=== PATIENT | male | born 1970 | race Caucasian/White ===

== ENCOUNTER 2017-09-23 17:53 | Emergency (ER) | payer SELFPAY ==
--- NOTE | 2017-09-23 18:13 | Emergency Department Record ---
History of Present Illness - General Chief Complaint: Headache Migraine Stated Complaint: HEAD PRESSURE Time Seen by Provider: 09/23/17 18:06 Source: Patient Mode of Arrival: Ambulatory - History of Present Illness Initial Comments: headache which started thursday and using norco one every 4 hours and he has four pills left. No vomiting and history of pneumonia one month ago and was on zpak and had a chest xray. slight cough, smokes cigs. No nuchal signs. Patient states it feels like a band around his head MD Complaint: Headache Onset/Timin -: Days(s) Onset Description: Gradual, At rest Location: Occipital Severity scale (1-10): 5 Quality: Full Consistency: Constant, Getting worse Improves With: Nothing Worsens With: None Treatments Prior to Arrival: Prescription analgesic - Related Data Previous Rx's Medication Instructions Recorded Naproxen [Naprosyn] 500 mg PO BID #20 tablet 09/23/17 Allergies Allergy/AdvReac Type Severity Reaction Status Date / Time povidone-iodine Allergy Mild RASH Unverified 09/23/17 17:24 [From Betadine] soap [From Betadine] Allergy Mild RASH Unverified 09/23/17 17:24 Travel Screening - Travel/Exposure Within Last 30 Days Have you traveled within the last 30 days?: No Review of Systems Reviewed: No additional complaints except as noted below Constitutional: Reports: As per HPI. Denies: Chills, Fever, Malaise, Night sweats, Weakness, Weight change Eyes: Reports: As per HPI. Denies: Eye discharge, Eye pain, Photophobia, Vision change ENT: Reports: As per HPI, Congestion. Denies: Dental pain, Ear pain, Epistaxis , Hearing loss, Throat pain Respiratory: Reports: As per HPI. Denies: Cough, Dyspnea, Hemoptysis, Stridor, Wheezes Cardiovascular: Reports: As per HPI. Denies: Arrhythmia, Chest pain, Dyspnea on exertion, Edema, Murmurs, Orthopnea, Palpitations, Paroxysmal nocturnal dyspnea, Rheumatic Fever, Syncope Endocrine: Reports: As per HPI. Denies: Fatigue, Heat or cold intolerance, Polydipsia, Polyuria Gastrointestinal: Reports: As per HPI. Denies: Abdominal pain, Constipation, Diarrhea, Hematemesis, Hematochezia, Melena, Nausea, Vomiting Genitourinary: Reports: As per HPI. Denies: Dysuria, Frequency, Hematuria, Incontinence, Retention, Testicular pain, Testicular mass, Urgency Musculoskeletal: Reports: As per HPI. Denies: Arthralgia, Back pain, Gout, Joint swelling, Myalgia, Neck pain Skin: Reports: As per HPI. Denies: Bruising, Change in color, Change in hair/ nails, Lesions, Pruritus, Rash Neurological: Reports: As per HPI. Denies: Abnormal gait, Confusion, Headache, Numbness, Paresthesias, Seizure, Tingling, Tremors, Vertigo, Weakness Psychiatric: Reports: As per HPI. Denies: Anxiety, Auditory hallucinations, Depression, Homicidal thoughts, Suicidal thoughts, Visual hallucinations Hematological/Lymphatic: Reports: As per HPI. Denies: Anemia, Blood Clots, Easy bleeding, Easy bruising, Swollen glands Past Medical History - SOCIAL HISTORY Smoking Status: Never smoker Alcohol Use: None Drug Use: None - RESPIRATORY Hx Respiratory Disorders: No - CARDIOVASCULAR Hx Cardio Disorders: No - NEURO Hx Neuro Disorders: No - GI Hx GI Disorders: No - Hx Genitourinary Disorders: No - ENDOCRINE Hx Endocrine Disorders: No - MUSCULOSKELETAL Hx Musculoskeletal Disorders: No - PSYCH Hx Psych Problems: No - HEMATOLOGY/ONCOLOGY Hx Hematology/Oncology Disorders: No Family Medical History Any Significant Family History?: No Physical Exam - General General Appearance: Alert, Oriented x3, Cooperative, Mild distress - Head Head exam: Normal inspection, Other (No nuchal signs and moves his neck without pain) - Eye Eye exam: Normal appearance, PERRL Pupils: Normal accommodation - ENT ENT exam: Normal exam, Mucous membranes moist, Normal external ear exam, Normal orophraynx, TM's normal bilaterally Ear exam: Normal external inspection. negative: External canal tenderness Nasal Exam: Normal inspection. negative: Discharge, Sinus tenderness Mouth exam: Normal external inspection, Tongue normal Teeth exam: Normal inspection. negative: Dental caries Throat exam: Normal inspection. negative: Tonsillar erythema, Tonsillar exudate - Neck Neck exam: Normal inspection, Full ROM. negative: Tenderness - Respiratory Respiratory exam: Normal lung sounds bilaterally. negative: Respiratory distress - Cardiovascular Cardiovascular Exam: Regular rate, Normal rhythm, Normal heart sounds - GI/Abdominal GI/Abdominal exam: Soft, Normal bowel sounds. negative: Tenderness - Rectal Rectal exam: Deferred - exam: Deferred - Extremities Extremities exam: Normal inspection, Full ROM, Normal capillary refill. negative: Tenderness - Back Back exam: Reports: Normal inspection, Full ROM. Denies: Muscle spasm, Rash noted, Tenderness - Neurological Neurological exam: Alert, Normal gait, Oriented X3, Reflexes normal - Psychiatric Psychiatric exam: Normal affect, Normal mood - Skin Skin exam: Dry, Intact, Normal color, Warm Course - Reevaluation(s) Reevaluation #1: reviewed chest xray from july09/23/17 18:39 Medical Decision Making - Lab Data Result diagrams: 09/23/17 18:20 09/23/17 18:20 Disposition Clinical Impression: Headache Qualifiers: Headache type: tension-type Headache chronicity pattern: acute headache Intractability: not intractable Qualified Code(s): G44.209 - Tension-type headache, unspecified, not intractable Disposition: Home, Self-Care Condition: (1) Good Instructions: Tension Headache (ED) Additional Instructions: follow up with Dr. Galloway on Thursday at 10:00 am naprosyn twice a day Prescriptions: Naproxen [Naprosyn] 500 mg PO BID #20 tablet Forms: Patient Portal Access Time of Disposition: 18:57 Quality - Quality Measures Quality Measures: N/A - Blood Pressure Screening Does Patient Have Any of the Following: No Blood Pressure Classification: Hypertensive Reading Systolic Measurement: 142 Diastolic Measurement: 105 Screening for High Blood Pressure: < Pre-Hypertensive BP, F/U Documented > [ G8950] Pre-Hypertensive Follow-up Interventions: Referral to alternative/primary care provider.
[2017-09-23] MEDS ORDERED: DIPHENHYDRAMINE HCL 50 MG/ML VIAL IVP ONE (18:16)
[2017-09-23] MEDS ORDERED: PROMETHAZINE HCL 25 MG in 0.9 % SODIUM CHLORIDE 100ML 100 ML IVPB ONE (18:16)
[2017-09-23] MEDS ORDERED: KETOROLAC 30 MG/ML VIAL IVP ONE (18:16)
[2017-09-23] MEDS ORDERED: 0.9 % SODIUM CHLORIDE 1000ML 1,000 ML IV ONE (18:18)
[2017-09-23 18:34] LABS: BASO % 0.3 % (0-6); GRAN % 69.9 % (47-80); HEMATOCRIT 48.6 % (42.0-52.0); HEMOGLOBIN 16.6 gm/dl (14.0-18.0); LYMPH % 19.8 % (16-45); MEAN CELL VOLUME 80.5 fl (81-97); MEAN CORPUSCULAR HEMOGLOBIN 27.4 pg (27-33); MEAN CORPUSCULAR HGB CONC 34.2 g/dl (32-36); MEAN PLATELET VOLUME 10.4 fl (7.4-10.4); PLATELET COUNT 268 K/uL (130-400); RED BLOOD COUNT 6.04 M/uL (4.40-5.70); RED CELL DISTRIBUTION WIDTH 14.2 % (11.5-14.5); URINE APPEARANCE CLEAR; URINE BILIRUBIN NEGATIVE (NEGATIVE); URINE BLOOD NEGATIVE (NEGATIVE); URINE COLOR YELLOW; URINE GLUCOSE (UA) NEGATIVE (NEGATIVE); URINE KETONE NEGATIVE (NEGATIVE); URINE LEUKOCYTE ESTERASE NEGATIVE (NEGATIVE); URINE NITRITE NEGATIVE (NEGATIVE); URINE PROTEIN NEGATIVE (NEGATIVE); URINE UROBILINOGEN 0.2 E.U./dL (0.20 - 1.00); WHITE BLOOD COUNT W/O DIFF 9.9 K/uL (4.2-12.2)
[2017-09-23 18:54] LABS: BLOOD UREA NITROGEN 13 mg/dL (6-20); EST GLOMERULAR FILTRATION RATE > 60 mL/min
[2017-09-23 18:57] LABS: GLUCOSE,RANDOM 99 mg/dL (74-109)
== END 2017-09-23 19:32 | disposition home or self-care (01) ==
LOC: ER 17:53
DX: G44.209 Tension-type headache, unspecified, not intractable (principal); R05 Cough; Z87.891 Personal history of nicotine dependence
CPT/HCPCS: 99284 ×2; 96374; 96375; 85025; 80048; 81003; J1885; J1200; J2550

== ENCOUNTER 2017-09-24 13:05 | Emergency (ER) | payer SELFPAY ==
[2017-09-24] MEDS ORDERED: KETOROLAC 30 MG/ML VIAL IVP ONE (13:17)
[2017-09-24] MEDS ORDERED: DEXAMETHASONE SOD PHOSPHATE 10MG/ML VIAL IVP ONE (13:17)
[2017-09-24] MEDS ORDERED: DIAZEPAM 5 MG TABLET PO ONE (13:18)
--- NOTE | 2017-09-24 13:22 | Emergency Department Record ---
History of Present Illness - General Chief Complaint: Headache Migraine Stated Complaint: NEED RECHECK Time Seen by Provider: 09/24/17 13:07 Source: Patient, Family Mode of Arrival: Ambulatory Limitations: No limitations - History of Present Illness Initial Comments: 47 yo male presents with 5 days of gradual onset, gradual worsening headache that he states is a pressure not so much a pain. The headache started on the right side. It is noticeable with certain positions, cough, or movements. No sinus symptoms. No vision changes. No fever. No trauma. NO light sensitivity. No weakness. No dizziness. No nausea or vomiting. He has chronic ringing in his ears. He was in the ED yesterday. He is not improved yet. His BP has been elevated for him the last two days. He does not see a PCP. He does not take medications on a regular basis. The headache started mild. Not sudden onset. It has taken days to increase. No rash. No scalp tenderness. 20 years ago he had spinal meningitis. He had fever, headache, neck pain, light sensitivity then. He does not have those symptoms at this time. MD Complaint: Headache -: Days(s) (5) Onset Description: Gradual Location: Frontal, Temporal Severity: Moderate Quality: Aching Consistency: Other (Improved today but not gone) Improves With: Nothing Worsens With: Other (Cough) Context: Other (gradual onset worse with cough) Associated Symptoms: Other (No other symptoms in this list) Treatments Prior to Arrival: Prescription analgesic, Other - Related Data Previous Rx's Medication Instructions Recorded Naproxen [Naprosyn] 500 mg PO BID #20 tablet 09/23/17 Hydrochlorothiazide [Hctz] 12.5 mg PO DAILY #30 tablet 09/24/17 Allergies Allergy/AdvReac Type Severity Reaction Status Date / Time povidone-iodine Allergy Mild RASH Unverified 09/23/17 17:24 [From Betadine] soap [From Betadine] Allergy Mild RASH Unverified 09/23/17 17:24 Review of Systems Constitutional: Denies: Chills, Fever, Malaise, Weakness Eyes: Denies: Eye discharge, Eye pain, Photophobia, Vision change ENT: Denies: Congestion, Throat pain Respiratory: Denies: Cough, Dyspnea, Hemoptysis, Stridor, Wheezes Cardiovascular: Denies: Chest pain, Palpitations, Syncope Endocrine: Denies: Fatigue Gastrointestinal: Denies: Abdominal pain, Diarrhea, Nausea, Vomiting Genitourinary: Denies: Dysuria, Frequency, Hematuria Musculoskeletal: Denies: Arthralgia, Back pain, Joint swelling, Myalgia, Neck pain Skin: Denies: Bruising, Change in color, Rash Neurological: Reports: Headache. Denies: Abnormal gait, Confusion, Numbness, Paresthesias, Seizure, Tingling, Tremors, Vertigo, Weakness Psychiatric: Denies: Anxiety Hematological/Lymphatic: Denies: Blood Clots, Easy bleeding, Easy bruising, Swollen glands Past Medical History - SOCIAL HISTORY Smoking Status: Never smoker Drug Use: None - RESPIRATORY Hx Respiratory Disorders: No - CARDIOVASCULAR Hx Cardio Disorders: No - NEURO Hx Neuro Disorders: No - GI Hx GI Disorders: No - Hx Genitourinary Disorders: No - ENDOCRINE Hx Endocrine Disorders: No - MUSCULOSKELETAL Hx Musculoskeletal Disorders: No - PSYCH Hx Psych Problems: No - HEMATOLOGY/ONCOLOGY Hx Hematology/Oncology Disorders: No Physical Exam - General General Appearance: Alert, Oriented x3, Cooperative, No acute distress Limitations: No limitations - Head Head exam: Atraumatic, Normocephalic, Normal inspection - Eye Eye exam: Normal appearance, PERRL, EOMI. negative: Conjunctival injection, Nystagmus, Periorbital swelling, Scleral icterus - ENT ENT exam: Normal exam, Mucous membranes moist, Normal orophraynx, TM's normal bilaterally Ear exam: Normal external inspection Nasal Exam: Normal inspection Mouth exam: Normal external inspection Teeth exam: Normal inspection Throat exam: Normal inspection - Neck Neck exam: Normal inspection, Full ROM, Other (Supple neck, no pain with ROM). negative: Lymphadenopathy, Meningismus, Tenderness, Thyromegaly - Respiratory Respiratory exam: Normal lung sounds bilaterally. negative: Respiratory distress - Cardiovascular Cardiovascular Exam: Regular rate, Normal rhythm, Normal heart sounds - GI/Abdominal GI/Abdominal exam: Soft. negative: Tenderness - Rectal Rectal exam: Deferred - exam: Deferred - Extremities Extremities exam: Normal inspection, Full ROM. negative: Pedal edema, Tenderness - Back Back exam: Reports: Normal inspection, Full ROM. Denies: Muscle spasm, Rash noted, Tenderness - Neurological Neurological exam: Alert, CN II-XII intact, Normal gait, Oriented X3, Reflexes normal, Other (Normal FTN, Normal gait, NO PND, normal MELISSA, No ataxia). negative: Abnormal gait, Altered, Motor sensory deficit - Psychiatric Psychiatric exam: Normal affect, Normal mood, Other (Well appearing). negative : Agitated, Anxious - Skin Skin exam: Dry, Intact, Normal color, Warm Course - Reevaluation(s) Reevaluation #1: Labs yesterday noted. Normal CBC and BMP 09/24/17 13:26 09/24/17 13:50 The EMR was reviewed No protein in the urine yesterday The BP was elevated as well on yesterday's visit. The patient expresses concern that has been the case 2 days now which is new. 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 09/24/17 14:34 With BP down his symptoms have resolved. Disposition Disposition: Discharge Clinical Impression: Headache, Elevated blood pressure reading Disposition: Home, Self-Care Condition: (1) Good Instructions: Acute Headache (ED), Hypertension (ED) Additional Instructions: Call today to schedule a follow up with a new family doctor Be seen immediately if worse, any new symptoms or concerns We discussed low dose BP medication until follow up Prescriptions: Hydrochlorothiazide [Hctz] 12.5 mg PO DAILY #30 tablet Referrals: Cecil Tejada M.D., F.A.C.P. [MEDICAL DOCTOR] - BRANDON WARREN [MEDICAL DOCTOR] - Forms: Patient Portal Access Time of Disposition: 14:34 Quality - Quality Measures Quality Measures: N/A - Blood Pressure Screening Does Patient Have Any of the Following: No Blood Pressure Classification: Hypertensive Reading Systolic Measurement: 123 Diastolic Measurement: 99 Screening for High Blood Pressure: < Pre-Hypertensive BP, F/U Documented > [ G8950] Pre-Hypertensive Follow-up Interventions: Referral to alternative/primary care provider.
--- NOTE | 2017-09-26 09:22 | CT SCAN REPORT ---
DATE: 09/24/2017 at 1:46 p.m. EXAM: EMERGENCY HEAD CT. HISTORY: Increasing right-sided headache for five days. TECHNIQUE: Axial CT scan of the head performed without intravenous contrast. COMPARISON: None. FINDINGS: No definite acute intracranial hemorrhage identified. No focal mass effect or midline shift apparent. No definite acute infarct or intracranial mass lesion is seen. No depressed calvarial fracture is seen. If the patient' s neurologic symptoms persist, follow-up brain MRI may be useful for further evaluation if not contraindicated. IMPRESSION: EMERGENCY NONCONTRAST HEAD CT APPEARS NEGATIVE WITH NO DEFINITE ACUTE INTRACRANIAL HEMORRHAGE OR FOCAL MASS EFFECT EVIDENT. JOB NUMBER: [id number] MTDD
== END 2017-09-24 14:50 | disposition home or self-care (01) ==
LOC: ER 13:05
DX: R51 Headache (principal); R03.0 Elevated blood-pressure reading, without diagnosis of hypertension
CPT/HCPCS: 99284 ×2; 96374; 96375; 70450; J3490; J1885; J1100

== ENCOUNTER 2017-09-26 20:38 | Emergency (ER) | payer SELFPAY ==
[2017-09-26] MEDS ORDERED: LORAZEPAM 0.5 MG TABLET PO ONE (21:01)
[2017-09-26] MEDS ORDERED: KETOROLAC 30 MG/ML VIAL IM ONE (21:03)
--- NOTE | 2017-09-26 21:08 | Emergency Department Record ---
History of Present Illness - General Chief Complaint: Hypertension Stated Complaint: BP IS HIGH Time Seen by Provider: 09/26/17 20:39 Source: Patient Mode of Arrival: Ambulatory Limitations: No limitations - History of Present Illness Initial Comments: The patient is here due to a 4-5 day hx of intermittent head pressure. The symptoms come on gradually and seem to start behind the R eye with pressure, then slowly the pressure spreads to the rest of the head. He denies any visual changes, neck pain, photophobia or dizziness with it. There also is no neck pain or balance problems and no sinus drainage. The patient has been to the ER here twice for it the last 3 days and has had normal lab work and a neg Head CT. He was started on low dose BP medicines which has lowered his BP. There is no arm or leg numbness, weakness, or any confusion or fever. The pressure is worse with coughing at times and at other times it is not. Onset/Timin -: Days(s) History of Same: No History of Trauma: No Severity: Severe Improves With: Nothing - [place] Coma Scale Eye Response: (4) Open spontaneously Motor Response: (6) Obeys commands Verbal Response: (5) Oriented Elfego Total: 15 - Related Data Previous Rx's Medication Instructions Recorded Naproxen [Naprosyn] 500 mg PO BID #20 tablet 09/23/17 Hydrochlorothiazide [Hctz] 12.5 mg PO DAILY #30 tablet 09/24/17 Allergies Allergy/AdvReac Type Severity Reaction Status Date / Time povidone-iodine Allergy Mild RASH Unverified 09/23/17 17:24 [From Betadine] soap [From Betadine] Allergy Mild RASH Unverified 09/23/17 17:24 Travel Screening - Travel/Exposure Within Last 30 Days Have you traveled within the last 30 days?: No - Travel/Exposure Within Last Year Have you traveled outside the [place] in the last year?: No - Additonal Travel Details Have you been exposed to anyone with a communicable illness?: No - Travel Symptoms Symptom Screening: None Review of Systems Constitutional: Denies: Chills, Fever, Malaise Eyes: Denies: Eye discharge ENT: Denies: Congestion Respiratory: Denies: Cough, Dyspnea Cardiovascular: Denies: Arrhythmia, Chest pain Past Medical History - SOCIAL HISTORY Smoking Status: Heavy tobacco smoker (>10/day) Alcohol Use: None Drug Use: None - RESPIRATORY Hx Respiratory Disorders: No - CARDIOVASCULAR Hx Cardio Disorders: No - NEURO Hx Neuro Disorders: No - GI Hx GI Disorders: No - Hx Genitourinary Disorders: No - ENDOCRINE Hx Endocrine Disorders: No - MUSCULOSKELETAL Hx Musculoskeletal Disorders: No - PSYCH Hx Psych Problems: No - HEMATOLOGY/ONCOLOGY Hx Hematology/Oncology Disorders: No Family Medical History Any Significant Family History?: No Physical Exam - General General Appearance: Alert, Oriented x3, Cooperative, No acute distress - Head Head exam: Atraumatic, Normocephalic, Normal inspection - Eye Eye exam: Normal appearance, PERRL, EOMI, Other (Neg papilledema.) - ENT Throat exam: Normal inspection. negative: Tonsillar erythema, Tonsillar exudate - Neck Neck exam: Normal inspection, Full ROM. negative: Tenderness - Respiratory Respiratory exam: Normal lung sounds bilaterally. negative: Respiratory distress - Cardiovascular Cardiovascular Exam: Regular rate, Normal rhythm, Normal heart sounds - GI/Abdominal GI/Abdominal exam: Soft, Normal bowel sounds. negative: Tenderness - Extremities Extremities exam: Normal inspection, Full ROM, Normal capillary refill. negative: Tenderness - Neurological Neurological exam: Alert, Normal gait, Oriented X3, Other (Neg Drift and Rhomberg exams.). negative: Abnormal gait, Motor sensory deficit - Skin Skin exam: negative: Rash Course Vital Signs 09/26/17 20:44 Temperature 98.2 F Pulse Rate [ 77 Pulse Ox Probe] Respiratory 18 Rate Blood Pressure 136/89 [Left Arm] Pulse Ox 98 - Reevaluation(s) Reevaluation #1: The patient is doing well. I did discuss the CXR and CT results and due to the L hilar mass did recommend hospital admission for urgent Oncological consultation and probably a biopsy. The patient wanted to go to [facility] [place] so I did discuss the case with Dr. Dela Cruz at [facility] and he does accept the patient for admission. 09/27/17 00:39 Medical Decision Making - Data Complexity MDM Data: Labs Ordered and/or Reviewed, X-Ray Ordered and/or Reviewed - Lab Data Result diagrams: 09/26/17 21:11 09/26/17 21:11 - Radiology Data Radiology results: Report reviewed (CXR: L hilar mass Chest CT: bulky L hilar mass with scattered calcifications. Prob obstruction of a partion of the posterior segment L upper lobe bronchus and L lingular bronchus. Opacification of the L upper lob and lingula compatible with pneumonia.) Disposition Disposition: Transfer Clinical Impression: Mass of left lung Disposition: Acute Care Hospital Transfer Transfer To: [facility] Reason For Transfer: Lung Mass Accepting Physician: Lanie. Time Discussed w/Accepting Physician: 00:41 Condition: (2) Stable Forms: Patient Portal Access Time of Disposition: 00:41 Quality - Quality Measures Quality Measures: N/A - Blood Pressure Screening View Details: Yes Does Patient Have Any of the Following: No Blood Pressure Classification: Hypertensive Reading Systolic Measurement: 137 Diastolic Measurement: 91 Screening for High Blood Pressure: < First Hypertensive BP, F/U Documented > [ G8950] First Hypertensive Follow-up Interventions: Referral to alternative/primary care provider.
[2017-09-26 21:24] LABS: BASO % 0.4 % (0-6); EOS % 2.2 % (0-6); GRAN % 58.4 % (47-80); HEMATOCRIT 47.3 % (42.0-52.0); HEMOGLOBIN 16.4 gm/dl (14.0-18.0); LYMPH % 29.4 % (16-45); MEAN CELL VOLUME 80.3 fl (81-97); MEAN CORPUSCULAR HEMOGLOBIN 27.8 pg (27-33); MEAN CORPUSCULAR HGB CONC 34.7 g/dl (32-36); MEAN PLATELET VOLUME 10.7 fl (7.4-10.4); MONO % 9.6 % (0-9); PLATELET COUNT 283 K/uL (130-400); RED BLOOD COUNT 5.89 M/uL (4.40-5.70); RED CELL DISTRIBUTION WIDTH 14.5 % (11.5-14.5); WHITE BLOOD COUNT W/O DIFF 10.5 K/uL (4.2-12.2)
[2017-09-26 21:37] LABS: BLOOD UREA NITROGEN 21 mg/dL (6-20); EST GLOMERULAR FILTRATION RATE > 60 mL/min; TOTAL PROTEIN 7.2 g/dL (6.6-8.7)
[2017-09-26 21:39] LABS: GLUCOSE,RANDOM 100 mg/dL (74-109)
[2017-09-26 21:42] LABS: ALB/GLOB RATIO 1.5 (1.1-1.8); ALBUMIN 4.3 g/dL (4.0-5.0); ALKALINE PHOSPHATASE 82 U/L (40-129); ALT/SGPT 27 U/L (<41); AST/SGOT 24 U/L (10.0-50.0); C-REACTIVE PROTEIN 0.22 mg/dL (<0.5)
[2017-09-26 22:40] LABS: ERYTHROCYTE SEDIMENTATION RATE 7 mm/hr (0-15)
[2017-09-27] MEDS ORDERED: CEFTRIAXONE SODIUM 1 GM in 0.9 % SODIUM CHLORIDE 100ML 100 ML IVPB ONE (00:23)
--- NOTE | 2017-09-28 09:20 | RADIOLOGY REPORT ---
EXAM: CHEST, TWO VIEWS HISTORY: DIFFICULTY BREATHING. TECHNIQUE: Frontal and lateral views of the chest were obtained. Comparison: 08/03/17 chest. FINDINGS: The heart size is normal. There is a nodular, mass like opacity in the left perihilar region which was also present previously. Consider further assessment with CT to exclude mass. No pneumothorax. IMPRESSION: NODULAR OPACITY IN THE LEFT PERIHILAR REGION, SIMILAR TO THE PRIOR EXAM. CONSIDER FURTHER ASSESSMENT WITH CT TO EXCLUDE MASS. JOB NUMBER: [id number] [facility]
--- NOTE | 2017-09-28 09:36 | CT SCAN REPORT ---
EXAM: CT OF THE CHEST WITHOUT CONTRAST HISTORY: ABNORMAL CHEST X-RAY. TECHNIQUE: CT of the chest without IV contrast was obtained. Lack of IV contrast limits evaluation of the mediastinum and hilum. Comparison: Prior chest x-ray from the same date. FINDINGS: There are calcified and noncalcified, enlarged and nonenlarged mediastinal lymph nodes. In addition, there is a poorly defined soft tissue mass in the left hilar/suprahilar region corresponding to the abnormality on chest x-ray. This measures approximately 5.1 x 4.1 cm. This results in some narrowing of the adjacent bronchus. Further assessment with bronchoscopy recommended. There is some adjacent ground glass opacity as well as air space opacity in the left upper lobe posteriorly. Nonspecific nodule of the left upper lobe measuring 4.8 mm. No effusion. Small diaphragmatic hernia in the posteromedial right lung base with herniation of fat. The airways are otherwise patent. The lungs are otherwise clear. Limited evaluation of the upper abdomen shows multiple splenic granulomata. The osseous structures are grossly intact. IMPRESSION: 1. BULKY LEFT HILAR/SUPRAHILAR SOFT TISSUE MASS. THERE ARE CALCIFIED AND NONCALCIFIED MEDIASTINAL LYMPH NODES. THE MASS CAUSES SOME NARROWING OF THE ADJACENT BRONCHUS AND THERE IS ALSO SOME SURROUNDING GROUND GLASS OPACITY OF THE LEFT UPPER LOBE. THERE IS A LEFT UPPER LOBE PULMONARY NODULE MEASURING 4.8 MM. FURTHER ASSESSMENT WITH BRONCHOSCOPY RECOMMENDED. WHILE FINDINGS MAY BE POST INFLAMMATORY, MALIGNANCY IS NOT EXCLUDED. 2. NOT STATED PREVIOUSLY, SMALL HIATAL HERNIA. J[facility]BER: [id number] [facility]
== END 2017-09-27 01:21 | disposition short-term general hospital (02) ==
LOC: ER 20:38
DX: R91.8 Other nonspecific abnormal finding of lung field (principal); R03.0 Elevated blood-pressure reading, without diagnosis of hypertension; H57.11 Ocular pain, right eye; F17.210 Nicotine dependence, cigarettes, uncomplicated
CPT/HCPCS: 99285 ×2; 96372; 96365; 85025; 85651; 86140; 80053; 71046; 71250; J1885

== ENCOUNTER 2017-12-05 16:52 | Emergency (ER) | payer MEDICAID ==
--- NOTE | 2017-12-05 17:06 | Emergency Department Record ---
History of Present Illness - General Chief complaint: Bite Insect/other Stated complaint: WATER BLISTERS Source: Patient Mode of Arrival: Ambulatory Limitations: No limitations - History of Present Illness Initial comments: 47 yo male presents with a superficial slightly raised rash on the left arm. He was stung by a sweat bee two hours ago. No shortness of breath, cough, lip or facial swelling. No chest pain. He is currently on steroids for a new diagnosis of lung cancer. He is essentially asymptomatic at this time. He called his oncologist and is waiting for a call back prior to accepting any additional medications. MD complaint: Rash -: Hour(s) (2) Location: LUE Severity: Mild Quality: Other (itches) Consistency: Constant Improves with: None Worsens with: None Context: Other (Witnessed bee sting) Associated symptoms: Denies other symptoms Treatments Prior to Arrival: Corticosteroid - Related Data Home Medications Medication Instructions Recorded Confirmed Last Taken Hydrocodone/Acetaminophen 1 tab PO Q6H PRN 12/05/17 12/05/17 12/05/17 06:00 [Hydrocodone/Acetaminophen 5mg/325mg] Hydrocortisone [Cortef] 10 mg PO ASDIR 12/05/17 12/05/17 12/05/17 Levothyroxine Sodium 50 mcg PO DAILY 12/05/17 12/05/17 12/05/17 Allergies Allergy/AdvReac Type Severity Reaction Status Date / Time povidone-iodine Allergy Mild RASH Verified 12/05/17 16:58 [From Betadine] soap [From Betadine] Allergy Mild RASH Verified 12/05/17 16:58 Review of Systems Constitutional: Denies: Chills, Fever, Malaise, Weakness Eyes: Denies: Eye discharge ENT: Denies: Congestion, Throat pain Respiratory: Denies: Cough, Dyspnea, Hemoptysis, Wheezes Cardiovascular: Denies: Chest pain, Syncope Endocrine: Denies: Fatigue Gastrointestinal: Denies: Abdominal pain, Diarrhea, Nausea, Vomiting Genitourinary: Denies: Dysuria, Frequency, Hematuria Musculoskeletal: Denies: Arthralgia, Back pain, Myalgia Skin: Reports: Rash. Denies: Change in color Neurological: Denies: Headache Psychiatric: Denies: Anxiety Hematological/Lymphatic: Denies: Blood Clots, Easy bleeding, Easy bruising Past Medical History - SOCIAL HISTORY Smoking Status: Heavy tobacco smoker (>10/day) Drug Use: None - RESPIRATORY Hx Respiratory Disorders: No - CARDIOVASCULAR Hx Cardio Disorders: No - NEURO Hx Neuro Disorders: No - GI Hx GI Disorders: No - Hx Genitourinary Disorders: No - ENDOCRINE Hx Endocrine Disorders: No - MUSCULOSKELETAL Hx Musculoskeletal Disorders: No - PSYCH Hx Psych Problems: No - HEMATOLOGY/ONCOLOGY Hx Hematology/Oncology Disorders: No Physical Exam - General General Appearance: Alert, Oriented x3, Cooperative, No acute distress Limitations: No limitations - Head Head exam: Atraumatic, Normal inspection - Eye Eye exam: Normal appearance, PERRL. negative: Conjunctival injection, Scleral icterus - ENT ENT exam: Normal exam Ear exam: Normal external inspection Nasal Exam: Normal inspection Mouth exam: Normal external inspection - Neck Neck exam: Normal inspection - Respiratory Respiratory exam: Normal lung sounds bilaterally. negative: Respiratory distress, Rhonchi, Stridor, Wheezes - Cardiovascular Cardiovascular Exam: Regular rate, Normal rhythm, Normal heart sounds - GI/Abdominal GI/Abdominal exam: Soft, Other (normal inspection) - Rectal Rectal exam: Deferred - exam: Deferred - Extremities Extremities exam: Normal inspection, Normal capillary refill. negative: Full ROM, Joint swelling, Pedal edema, Tenderness - Back Back exam: Reports: Normal inspection - Neurological Neurological exam: Alert, Oriented X3 - Psychiatric Psychiatric exam: Normal affect, Normal mood - Skin Skin exam: Rash (very fine, palpable rash to the LUE, no weeping, no swelling of the arm) Course - Reevaluation(s) Reevaluation #1: 12/05/17 17:38 The patient remains asymptomatic. His oncologist has not called back. No additional treatment needed at this time I informed him his Claritin or OTC Benadryl can be taken if the area itches 12/05/17 17:43 HR improved. The patient is very anxious about getting back to [place] race [place]. I offered additional monitoring. He declined. He feels like he is at his baseline just very eager to be discharged. Disposition Disposition: Discharge Clinical Impression: Bee sting Qualifiers: Encounter type: initial encounter Injury intent: undetermined intent Qualified Code(s): T63.444A - Toxic effect of venom of bees, undetermined, initial encounter Disposition: Home, Self-Care Condition: (1) Good Instructions: Insect Bite or Sting (ED) Additional Instructions: Be seen immediately if you have swelling, shortness of breath or any new symptoms Be in close contact with your oncologist as your prepare for chemotherapy this week Continue your current medications Forms: Patient Portal Access Time of Disposition: 17:41 Quality - Quality Measures Quality Measures: N/A - Blood Pressure Screening Does Patient Have Any of the Following: No Blood Pressure Classification: Pre-Hypertensive BP Reading Systolic Measurement: 119 Diastolic Measurement: 85 Screening for High Blood Pressure: < Pre-Hypertensive BP, F/U Documented > [ G8950] Pre-Hypertensive Follow-up Interventions: Referral to alternative/primary care provider.
== END 2017-12-05 17:52 | disposition home or self-care (01) ==
LOC: ER 16:52
DX: T63.441A Toxic effect of venom of bees, accidental (unintentional), initial encounter (principal); L25.8 Unspecified contact dermatitis due to other agents; C34.90 Malignant neoplasm of unspecified part of unspecified bronchus or lung; F17.210 Nicotine dependence, cigarettes, uncomplicated
CPT/HCPCS: 99283

== ENCOUNTER 2017-12-21 19:38 | Emergency (ER) | payer MEDICAID ==
[2017-12-21] MEDS ORDERED: IPRATROPIUM/ALBUTEROL (0.5MG/3MG) NEB INH ONE (19:42)
[2017-12-21] MEDS ORDERED: METHYLPREDNISOLONE PF 125MG/VIAL IVP ONE (19:43)
--- NOTE | 2017-12-21 19:44 | Emergency Department Record ---
History of Present Illness - General Chief Complaint: Shortness of breath Stated Complaint: ANTONIA/LUNG CANCER Time Seen by Provider: 12/21/17 19:42 Source: Patient, Family Mode of Arrival: Ambulatory Limitations: No limitations - History of Present Illness Initial Comments: 47 yo male presents with increasing shortness of breath over the last week. The patient has known lung CA. He reports he was out of state for the holiday in [place]. His breathing over the week has slowly worsened each day. He has clear sputum. Today he noted blood. No fevers. He has difficulty with any exertion with shortness of breath. His oncologist is in [facility]. He has undergone chemotherapy for lung CA. Last treatment was 12/10 with the next treatment 12/29. MD Complaint: Cough, Shortness of breath -: Days(s) (5) Severity: Moderate Quality: Other Consistency: Constant Improves With: Nothing Worsens With: Exertion, Inspiration, Movement Known History Of: COPD, Other (Lung Cancer) Context: Other (Lung Cancer) Associated Symptoms: Cough, Hemoptysis (Today) - Related Data Home Medications Medication Instructions Recorded Confirmed Last Taken Prochlorperazine Maleate 10 mg PO ASDIR PRN 12/21/17 12/21/17 Unknown Allergies Allergy/AdvReac Type Severity Reaction Status Date / Time povidone-iodine Allergy Mild RASH Verified 12/05/17 16:58 [From Betadine] soap [From Betadine] Allergy Mild RASH Verified 12/05/17 16:58 Review of Systems Constitutional: Reports: Malaise, Weakness. Denies: Chills, Fever Eyes: Denies: Eye discharge ENT: Reports: Congestion. Denies: Throat pain Respiratory: Reports: Cough, Dyspnea, Hemoptysis, Wheezes Cardiovascular: Reports: Dyspnea on exertion. Denies: Chest pain, Edema, Palpitations, Syncope Endocrine: Reports: Fatigue Gastrointestinal: Denies: Abdominal pain, Diarrhea, Nausea, Vomiting Genitourinary: Denies: Discharge, Dysuria, Frequency, Hematuria Musculoskeletal: Denies: Arthralgia, Back pain, Joint swelling, Myalgia Skin: Denies: Bruising, Change in color, Rash Neurological: Denies: Confusion, Headache, Numbness, Weakness Psychiatric: Denies: Anxiety Hematological/Lymphatic: Denies: Blood Clots, Easy bleeding, Easy bruising Past Medical History - SOCIAL HISTORY Smoking Status: Heavy tobacco smoker (>10/day) Drug Use: None - RESPIRATORY Hx Respiratory Disorders: No - CARDIOVASCULAR Hx Cardio Disorders: No - NEURO Hx Neuro Disorders: No - GI Hx GI Disorders: No - Hx Genitourinary Disorders: No - ENDOCRINE Hx Endocrine Disorders: No - MUSCULOSKELETAL Hx Musculoskeletal Disorders: No - PSYCH Hx Psych Problems: No - HEMATOLOGY/ONCOLOGY Hx Hematology/Oncology Disorders: No Physical Exam - General General Appearance: Alert, Oriented x3, Cooperative, No acute distress Limitations: No limitations - Head Head exam: Normal inspection - Eye Eye exam: Normal appearance. negative: Conjunctival injection, Scleral icterus - ENT ENT exam: Normal exam, Mucous membranes moist, Normal orophraynx Ear exam: Normal external inspection Nasal Exam: Normal inspection Mouth exam: Normal external inspection - Neck Neck exam: Normal inspection, Full ROM. negative: Tenderness - Respiratory Respiratory exam: Accessory muscle use, Decreased breath sounds, Prolonged expiratory, Rhonchi, Wheezes. negative: Normal lung sounds bilaterally, Respiratory distress - Cardiovascular Cardiovascular Exam: Normal rhythm, Normal heart sounds, Tachycardia. negative : Regular rate - GI/Abdominal GI/Abdominal exam: Soft, Tenderness - Rectal Rectal exam: Deferred - exam: Deferred - Extremities Extremities exam: Normal inspection, Full ROM, Normal capillary refill. negative: Pedal edema, Tenderness - Back Back exam: Reports: Normal inspection, Full ROM. Denies: Muscle spasm, Rash noted, Tenderness - Neurological Neurological exam: Alert, Normal gait, Oriented X3 - Psychiatric Psychiatric exam: Normal affect, Normal mood - Skin Skin exam: Dry, Intact, Normal color, Warm Course - Reevaluation(s) Reevaluation #1: EKG 1950 Rate is 126 Sinus Tachycardia [place] is normal ST NS diffuse ST changes. RVH, CBC WBC is 11, hgb is 8 Plt 307 CMP K is 3.1 AG is 20 AST is 325 ALT is 279 BNP is 333 Troponin is 0.01 12/21/17 21:23 CXR demonstrates increased opacification on Right side that could represent new air space disease. The opacity on the left increased in size as well. CTA ordered given his cancer and dyspnea Antibiotics were given 12/21/17 21:23 CR is 0.9 12/21/17 23:04 12/21/17 23:[address] report received: No PE, Left hilar mass, Left upper post obstructive atelectasis, cavitary lesion inthe LLL adn alveolar opacity in the RLL consistent with pneumonia. Given the tachycardia, hypoxia, pneumonia, lung cancer under active treatment I recommend admission. He requests [facility] where his oncology is located. I will contact the [facility]. The patient refuses EMS transfer. He insists on private car for transfer. 12/22/17 00:03 The patient insist on leaving now. I have spoken with Dr Fregoso of the [facility] ED once. He has accepted the patient and assist in direct placement. The patient is not willing to wait any longer. The patient was informed that his oncologist will not likely round on him at [facility] and I offered to admit him to [facility]. He declined and insists on leaving now to go to [facility]. Since a direct bed was not assigned he was instructed to go to the ED. Dr Fregoso was informed the patient will be coming by private car. Medical Decision Making - Lab Data Result diagrams: 12/21/17 20:10 12/21/17 20:10 Disposition Disposition: Transfer Clinical Impression: Left against medical advice, Mass of left lung, Pneumonia Disposition: Acute Care Hospital Transfer Transfer To: [facility] Reason For Transfer: Lung Cancer, Pneumonia Accepting Physician: Ildefonso Time Discussed w/Accepting Physician: 00:08 Condition: (2) Stable Instructions: Against Medical Advice (ED) Additional Instructions: Go directly to the [facility] ED for evaluation for your pneumonia Forms: Patient Portal Access Time of Disposition: 23:48 Quality - Quality Measures Quality Measures: N/A - Blood Pressure Screening Does Patient Have Any of the Following: No Blood Pressure Classification: Normal BP Reading Systolic Measurement: 108 Diastolic Measurement: 76 Screening for High Blood Pressure: < Normal BP, F/U Not Required > [G8783]
[2017-12-21 20:16] LABS: HEMATOCRIT 25.3 % (42.0-52.0); HEMOGLOBIN 8.3 gm/dl (14.0-18.0); MEAN CELL VOLUME 83.5 fl (81-97); MEAN CORPUSCULAR HEMOGLOBIN 27.3 pg (27-33); MEAN CORPUSCULAR HGB CONC 32.8 g/dl (32-36); MEAN PLATELET VOLUME 10.9 fl (7.4-10.4); PLATELET COUNT 307 K/uL (130-400); RED BLOOD COUNT 3.03 M/uL (4.40-5.70); RED CELL DISTRIBUTION WIDTH 17.8 % (11.5-14.5); WHITE BLOOD COUNT W/O DIFF 11.1 K/uL (4.2-12.2)
[2017-12-21 20:25] LABS: BLOOD UREA NITROGEN 10 mg/dL (6-20); CREATININE 0.8 mg/dL (0.7-1.2); EST GLOMERULAR FILTRATION RATE > 60 mL/min
[2017-12-21 20:26] LABS: TOTAL PROTEIN 7.4 g/dL (6.6-8.7)
[2017-12-21 20:28] LABS: GLUCOSE,RANDOM 132 mg/dL (74-109)
[2017-12-21 20:30] LABS: ALT/SGPT 279 U/L (<41); AST/SGOT 352 U/L (10.0-50.0)
[2017-12-21 20:31] LABS: ALB/GLOB RATIO 1.1 (1.1-1.8); ALBUMIN 3.8 g/dL (4.0-5.0); ALKALINE PHOSPHATASE 121 U/L (40-129)
[2017-12-21] MEDS ORDERED: CEFTRIAXONE SODIUM 1 GM in 0.9 % SODIUM CHLORIDE 100ML 100 ML IVPB ONE (21:22)
[2017-12-21] MEDS ORDERED: AZITHROMYCIN 500 MG TABLET PO ONE (22:30)
[2017-12-21] MEDS ORDERED: HEPARIN SODIUM FLUSH 100 UNITS/ML SYR 5ML IVP ONE (23:46)
--- NOTE | 2017-12-24 08:02 | RADIOLOGY REPORT ---
EXAM: CHEST HISTORY: DIFFICULTY BREATHING, WEAKNESS, HISTORY OF LUNG CANCER. TECHNIQUE: A single view of the chest was obtained. Comparison: Chest radiograph 09/26/17, CT chest 09/26/17. FINDINGS: A left sided chest port is present. The cardiac silhouette appears similar in size from previous examination. Confluent left perihilar opacity compatible with previously seen mass. The previous right perihilar opacity from previous studies, possibly representing atelectasis or air space disease. No pneumothorax or significant pleural fluid collection is visible. IMPRESSION: 1. RIGHT PERIHILAR OPACIFICATION, INCREASED FROM PREVIOUS CHEST RADIOGRAPH ON 09/26/17. THIS COULD REPRESENT ATELECTASIS AND/OR ACUTE AIR SPACE DISEASE. 2. CONFLUENT LEFT PERIHILAR CONSOLIDATION COMPATIBLE WITH KNOWN MASS. JOB NUMBER: [id number] MTDD
--- NOTE | 2017-12-24 09:58 | CT ANGIOGRAM REPORT ---
EXAM: EMERGENCY CTA OF THE CHEST WITH CONTRAST FOR PE HISTORY: DIFFICULTY IN BREATHING, LUNG CANCER TREATED WITH CHEMOTHERAPY, PNEUMOTHORAX, POSSIBLE PE. TECHNIQUE: CTA of the chest was performed following the intravenous administration of iodated contrast media. Please see the medical record for IV contrast specifics. Post processing on an independent workstation was performed with multiple 3D MIP series obtained. A preliminary report was provided by [facility]. Comparison: Prior chest CT dated 09/26/17. Chest x-ray date 12/21/17, report of the chest x-ray is not as yet available within PACS. FINDINGS: No definite PE identified, however, there is considerable mass like density in the left hilum contiguous with what is probably extensive mass/ adenopathy in the adjacent left side of the mediastinum particularly in the region of the AP window and adjacent periesophageal region, but also within the prevascular compartment worrisome for extensive malignancy. This left hilar/ perihilar/mediastinal mass does cause narrowing of the left main pulmonary artery as well as proximal left pulmonary arterial branches, but no intraluminal thrombus identified. The area of the mass within the left side of the mediastinum and hilar region measures about 6.9 cm in transverse x 5.2 cm in AP diameters and has increased in overall size compared to the prior study worrisome for progressive malignancy. In addition, several of the mediastinal nodes have increased in size also consistent with progressive metastatic jose disease. Compared to the prior study there is considerable new infiltrate in the right lower lobe which may represent pneumonitis. There is some atelectasis/ infiltrate in the lingula similar to before which may be on a postobstructive basis. There is, however, a new cavitary lesion about 2.4 cm in size in the left lower lobe anteriorly at the left base which could be inflammatory or neoplastic. There is some diffuse increased interstitial prominence in much of the right upper lobe as well which is nonspecific. Fullness of the lower pole of the left lobe of the thyroid compared to the right also present previously may just represent some clinically insignificant thyroid asymmetry although a lower pole left lobe thyroid nodule/mass could not be excluded. Minor pericardial fluid or thickening. Numerous calcified splenic granulomas. Small hiatal hernia. IMPRESSION: 1. NO DEFINITE PE IDENTIFIED. 2. 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 3. THE LARGE LEFT HILAR/PERIHILAR/MEDIASTINAL MASS CAUSES COMPRESSION OF THE LEFT MAIN PULMONARY ARTERY WELL PROXIMAL LEFT PULMONARY ARTERIAL BRANCHES AND ALSO CAUSES COMPRESSION OF THE LEFT UPPER LOBE BRONCHUS WITH SOME POST OBSTRUCTIVE ATELECTASIS/INFILTRATE IN THE LEFT UPPER LOBE. 4. NEW INFILTRATE RIGHT LOWER LOBE MAY REPRESENT PNEUMONITIS. 5. SOME PROGRESSIVE DIFFUSE INTERSTITIAL PROMINENCE IN THE RIGHT UPPER LOBE IS NONSPECIFIC. 6. NEW CAVITARY LESION LEFT LOWER LOBE COULD BE INFLAMMATORY OR NEOPLASTIC. 7. FULLNESS LOWER POLE LEFT LOBE OF THE THYROID, NONSPECIFIC. 8. CALCIFIED SPLENIC GRANULOMAS. 9. SMALL HIATAL HERNIA. JOB NUMBER: [id number] [facility]
== END 2017-12-22 00:12 | disposition left against medical advice (07) ==
LOC: ER 19:38
DX: J18.9 Pneumonia, unspecified organism (principal); R00.0 Tachycardia, unspecified; R91.8 Other nonspecific abnormal finding of lung field; R09.02 Hypoxemia; J44.9 Chronic obstructive pulmonary disease, unspecified; F17.210 Nicotine dependence, cigarettes, uncomplicated; C34.90 Malignant neoplasm of unspecified part of unspecified bronchus or lung
CPT/HCPCS: 99285 ×2; 96365; 96366; 96375; 80053; 84484; 85027; 83880; 71045; 71275; 94640; 93005; 93010; Q9967; J1642; J2930